=== PATIENT | male | born 1955 | race Caucasian/White ===

== ENCOUNTER 2020-10-10 09:57 | Emergency (ER) | payer MEDICARE, OTHER, SELFPAY ==
[2020-10-10 10:06] VITALS: BP 144/66; PULSE 91; RESP 16; TEMP 37.1; O2SAT 98
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
== END 2020-10-10 10:57 | disposition home or self-care (01) ==
PROVIDERS: Emergency Provider Emergency Medicine
DX: T26.11XA Burn of cornea and conjunctival sac, right eye, initial encounter (principal); X08.8XXA Exposure to other specified smoke, fire and flames, initial encounter; H53.141 Visual discomfort, right eye
CPT/HCPCS: 99213; A9270; G0463